=== PATIENT | male | born 1970 | race Caucasian/White ===

== ENCOUNTER 2017-08-19 06:19 | Day surgery (SDC) | payer OTHER ==
[2017-08-18 16:32] VITALS: BP 133/96
[2017-08-18 16:36] LABS: BASOPHILS % (AUTO) 0.5 % (0.0-5.0); EOSINOPHILS % (AUTO) 0.3 % (0.0-8.0); HEMATOCRIT 44.9 % (42-54); LYMPHOCYTES % (AUTO) 36.9 % (21.0-51.0); MEAN CORPUSCULAR HEMOGLOBIN 31.8 pg (27.0-33.0); MEAN CORPUSCULAR HGB CONC 34.2 g/dL (32.0-36.0); MEAN CORPUSCULAR VOLUME 92.8 fL (79-99); NEUTROPHILS % (AUTO) 55.3 % (40.0-77.0); PLATELET COUNT (AUTO) 223 K/uL (130-400); RED BLOOD CELL COUNT(AUTO) 4.84 MIL/uL (4.50-6.20); RED CELL DISTRIBUTION WIDTH 14.2 % (11.0-15.5); WHITE BLOOD COUNT (AUTO) 7.8 K/uL (4.8-10.8)
[2017-08-18 16:51] LABS: CREATININE 1.2 mg/dL (0.5-1.5); POTASSIUM 3.7 mmol/L (3.5-5.1)
[~2017-08-19] VITALS: Ht 175.3 cm; Wt 74.7 kg
[2017-08-19] VITALS (14 sets, daily range): BP systolic 104–130; BP diastolic 64–86
[~2017-08-19 06:19] MED LIST: ESOM40CA54 PO; HYDR-4064 PO; LISI2.5T2 PO; METF500T6 PO; ROSU10TA35 PO
[2017-08-19] MEDS ORDERED: SODIUM CHLORIDE 0.9% 1000ML 1,000 ML IV ONE (06:35)
[2017-08-19] MEDS: CEFAZOLIN SODIUM 1 GM VIAL ONE ×2 (06:52→08:32)
[2017-08-19] MEDS ORDERED: ONDANSETRON HCL 4 MG/2 ML VIAL ONE (08:22)
[2017-08-19] MEDS ORDERED: DEXAMETHASONE SOD PHOSPHATE 10MG/ML 1ML VIAL ONE (08:22)
[2017-08-19] MEDS ORDERED: MIDAZOLAM HCL 1 MG/ML 2ML VIAL ONE (08:22)
[2017-08-19] MEDS ORDERED: LIDOCAINE PF 2% 5ML ABBOJECT ONE (08:22)
[2017-08-19] MEDS ORDERED: FENTANYL CITRATE PF 50 MCG/1 ML 2ML VIAL ONE (08:22)
[2017-08-19] MEDS ORDERED: PROPOFOL 10 MG/ML 20ML VIAL IV ONE (08:22)
[2017-08-19] MEDS ORDERED: KETOROLAC TROMETHAMINE 30MG/ML ONE (09:27)
[2017-08-19] MEDS ORDERED: MEPERIDINE-PF 50 MG/ML SYG ONE ×2 (09:28→09:45)
== END 2017-08-19 10:55 | disposition home or self-care (01) ==
LOC: DAH 06:19
PROVIDERS: ATTEND Orthopaedic Surgery
DX: M23.321 Other meniscus derangements, posterior horn of medial meniscus, right knee (principal); M22.41 Chondromalacia patellae, right knee; E78.5 Hyperlipidemia, unspecified; K21.9 Gastro-esophageal reflux disease without esophagitis; I10 Essential (primary) hypertension; Z79.899 Other long term (current) drug therapy; Z79.84 Long term (current) use of oral hypoglycemic drugs; E11.9 Type 2 diabetes mellitus without complications
CPT/HCPCS: 29881; 36415; 80048; 82948 ×2; 85025; A4218; A4606; A4649 ×2; A4930 ×2; A6223; J0690; J1100; J1885; J2001; J2175 ×2; J2250; J2405; J2704; J3010; J7030

== ENCOUNTER 2018-06-16 06:31 | Emergency (ER) | payer OTHER ==
[~2018-06-16 06:31] MED LIST changes: +METF-444 PO; -METF500T6 PO; +ROSU10TA27 PO; -ROSU10TA35 PO
[2018-06-16] MEDS ORDERED: SODIUM CHLORIDE 0.9% 1000ML 1,000 ML IV ONE (07:04)
[2018-06-16] MEDS ORDERED: MORPHINE SULFATE 4 MG/1ML SYG ONE (07:04)
[2018-06-16] MEDS ORDERED: ONDANSETRON HCL 4 MG/2 ML VIAL ONE (07:04)
[2018-06-16 07:08] LABS: APPEARANCE,URINE Clear (CLEAR); BILIRUBIN,URINE Negative (NEGATIVE); COLOR,URINE Yellow (YELLOW); GLUCOSE, URINE (UA) TRACE mg/dL (NEGATIVE); KETONES,URINE Trace mg/dL (NEGATIVE); LEUKOCYTE ESTERASE ,URINE Negative (NEGATIVE); NITRATE,URINE Negative (NEGATIVE); OCCULT BLOOD,URINE Negative (NEGATIVE); PH,URINE 5.5 (5.0-8.0); PROTEIN,URINE POS 1+ (NEGATIVE)
[2018-06-16 07:23] LABS: BASOPHILS % (AUTO) 0.8 % (0.0-5.0); EOSINOPHILS % (AUTO) 0.6 % (0.0-8.0); HEMATOCRIT 44.3 % (42-54); LYMPHOCYTES % (AUTO) 33.5 % (21.0-51.0); MEAN CORPUSCULAR HEMOGLOBIN 31.3 pg (27.0-33.0); MEAN CORPUSCULAR HGB CONC 33.4 g/dL (32.0-36.0); MEAN CORPUSCULAR VOLUME 93.9 fL (79-99); MONOCYTES % (AUTO) 6.7 % (3.0-13.0); NEUTROPHILS % (AUTO) 58.4 % (40.0-77.0); NUCLEATED RED BLOOD CELLS 0.1 % (0.0-0.19); PLATELET COUNT (AUTO) 168 K/uL (130-400); RED BLOOD CELL COUNT(AUTO) 4.72 MIL/uL (4.50-6.20); RED CELL DISTRIBUTION WIDTH 12.9 % (11.0-15.5); WHITE BLOOD COUNT (AUTO) 8.4 K/uL (4.8-10.8)
[2018-06-16 07:29] LABS: CREATININE 0.9 mg/dL (0.5-1.5); POTASSIUM 3.7 mmol/L (3.5-5.1)
[2018-06-16 07:34] LABS: BACTERIA,URINE Rare /HPF (None Seen); MUCUS,URINE Many LPF (None Seen); RBC,URINE None Seen /HPF (0-1); SQUAMOUS EPITHELIAL CELL,UR Rare /HPF (0-2); WBC,URINE 0-1 /HPF (0-1)
[2018-06-16 07:44] LABS: ALBUMIN 4.2 g/dL (3.5-5.0); BILIRUBIN,TOTAL 0.5 mg/dL (0.2-1.0); TOTAL PROTEIN, SERUM 7.4 g/dL (6.0-8.3)
[2018-06-16] MEDS ORDERED: KETOROLAC TROMETHAMINE 30MG/ML ONE (07:46)
== END 2018-06-16 08:46 | disposition home or self-care (01) ==
LOC: EDH 06:31
DX: N20.9 Urinary calculus, unspecified (principal); Z98.890 Other specified postprocedural states
CPT/HCPCS: 36415; 74176; 80053; 80061; 81001; 82150; 83690; 85025; 96361; 96374; 96375; 99284; J1885; J2270; J2405; J7030

== ENCOUNTER 2018-06-20 20:21 | Emergency (ER) | payer OTHER ==
[2018-06-20] MEDS ORDERED: ONDANSETRON HCL 4 MG/2 ML VIAL ONE (20:54)
[2018-06-20] MEDS ORDERED: KETOROLAC TROMETHAMINE 30MG/ML ONE (20:54)
[2018-06-20] MEDS ORDERED: SODIUM CHLORIDE 0.9% 1000ML 1,000 ML IV ONE (20:54)
[2018-06-20 21:21] LABS: BASOPHILS % (AUTO) 0.4 % (0.0-5.0); EOSINOPHILS % (AUTO) 0.1 % (0.0-8.0); HEMATOCRIT 44.2 % (42-54); LYMPHOCYTES % (AUTO) 10.4 % (21.0-51.0); MEAN CORPUSCULAR HEMOGLOBIN 31.2 pg (27.0-33.0); MEAN CORPUSCULAR HGB CONC 33.3 g/dL (32.0-36.0); MEAN CORPUSCULAR VOLUME 93.6 fL (79-99); MONOCYTES % (AUTO) 5.8 % (3.0-13.0); NEUTROPHILS % (AUTO) 83.3 % (40.0-77.0); NUCLEATED RED BLOOD CELLS 0.1 % (0.0-0.19); PLATELET COUNT (AUTO) 176 K/uL (130-400); RED BLOOD CELL COUNT(AUTO) 4.72 MIL/uL (4.50-6.20); RED CELL DISTRIBUTION WIDTH 12.9 % (11.0-15.5); WHITE BLOOD COUNT (AUTO) 15.3 K/uL (4.8-10.8)
[2018-06-20 21:34] LABS: POTASSIUM 3.7 mmol/L (3.5-5.1)
[2018-06-20 21:44] LABS: BILIRUBIN,TOTAL 0.6 mg/dL (0.2-1.0); TOTAL PROTEIN, SERUM 7.9 g/dL (6.0-8.3)
[2018-06-20 23:13] LABS: BILIRUBIN,URINE Negative (NEGATIVE); COLOR,URINE Dark Yellow (YELLOW); GLUCOSE, URINE (UA) Negative (NEGATIVE); KETONES,URINE 15 mg/dL (NEGATIVE); LEUKOCYTE ESTERASE ,URINE Negative (NEGATIVE); NITRATE,URINE Negative (NEGATIVE); OCCULT BLOOD,URINE Negative (NEGATIVE); PH,URINE 5.5 (5.0-8.0); PROTEIN,URINE POS 1+ (NEGATIVE)
[2018-06-20] MEDS ORDERED: MORPHINE SULFATE 4 MG/1ML SYG ONE (23:13)
[2018-06-20] MEDS ORDERED: SODIUM CHLORIDE 0.9% 500ML 500 ML IV ONE (23:13)
[2018-06-20 23:14] LABS: APPEARANCE,URINE CLEAR (CLEAR)
[2018-06-21] MEDS ORDERED: TAMSULOSIN HCL 0.4 MG CAP.ER.24H ONE (00:51)
== END 2018-06-21 01:27 | disposition home or self-care (01) ==
LOC: EDH 20:21
DX: N20.1 Calculus of ureter (principal)
CPT/HCPCS: 36415; 76705; 80053; 81003; 85025; 96361; 96374; 96375; 99284; J1885; J2270; J2405; J7030; J7040

== ENCOUNTER → 2018-07-05 | Outpatient (CLI) | payer OTHER ==
[~2018-07-05] MED LIST changes: +IOHEXOL-350 75 ML VIAL IV ONE
== END | disposition home or self-care (01) ==
LOC: RAH 08:48
PROVIDERS: ATTEND Urology
DX: R10.84 Generalized abdominal pain (principal)
CPT/HCPCS: 74400; Q9967